=== PATIENT | female | born 1975 | race Caucasian/White ===

== ENCOUNTER 2021-03-29 15:34 | Emergency (ER) | payer BC, SELFPAY ==
--- NOTE | 2021-03-29 15:30 | DI.RAD_ITS ---
Exam(s) XR HAND RT COMPLETE EXAM: XR HAND RT COMPLETE CLINICAL HISTORY: trauma, deformed pinky finger. TECHNIQUE: 2D digital imaging was performed. COMPARISON: No exams were available for comparison FINDINGS: there is dislocation of the proximal interphalangeal joint of the 5th finger. no obvious fracture. no radiopaque foreign body. NO OSSEOUS LESIONS. IMPRESSION: Dislocation of the 5th finger at the proximal interphalangeal joint. No obvious fractures. DATA REPOSITORY: RADIATION DOSE DELIVERED:
[2021-03-29 15:39] VITALS: BP 115/70; PULSE 83; RESP 20; TEMP 37.6; O2SAT 99
--- NOTE | 2021-03-29 16:00 | DI.RAD_ITS ---
Exam(s) XR FINGER RT INDEX POST REDUC EXAM: XR FINGER RT INDEX POST REDUC CLINICAL HISTORY: Post reduction TECHNIQUE: COMPARISON: CR,XR XR HAND RT COMPLETE from 03/29/2021 FINDINGS: Three views of the little finger were obtained post reduction of PIP dislocation. Small bony fragmen t is noted in the soft tissues adjacent to the volar aspect of the joint, this presumably represents a small avulsion fracture, perhaps of the volar plate of the middle phalanx base. IMPRESSION: RADIATION DOSE DELIVERED: Total DLP
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
--- NOTE | 2021-03-29 16:57 | DI.VRAD_ITS ---
PROCEDURE INFORMATION: Exam: XR Right Hand Exam date and time: 03/29/2021 3:45 PM Age: 45 years old Clinical indication: Condition or disease; Other: Post reduction TECHNIQUE: Imaging protocol: XR Right hand. Views: 3 or more views. COMPARISON: No relevant prior studies available. FINDINGS: Bones/joints: There is dorsal ulnar dislocation of the PIP joint of the 5th digit. No definite fracture is seen. Soft tissues: Unremarkable. IMPRESSION: Dorsal ulnar dislocation of the PIP joint of the 5th digit. Dictated and Authenticated by: Scott Fung MD. Ordering:VICENTA Provider Temporary
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
== END 2021-03-29 16:49 | disposition home or self-care (01) ==
PROVIDERS: Emergency Provider Registered Nurse Emergency
DX: S63.286A Dislocation of proximal interphalangeal joint of right little finger, initial encounter (principal); V19.3XXA Pedal cyclist (driver) (passenger) injured in unspecified nontraffic accident, initial encounter
CPT/HCPCS: 26770; 29130; 73140; 99284; 73130; 99283